=== PATIENT | female | born 1940 | race Caucasian/White ===

== ENCOUNTER 2016-11-01 12:18 | Emergency (ER) | payer OTHER, MEDICARE ==
[~2016-11-01] VITALS: Ht 152.4 cm; Wt 80.3 kg
[~2016-11-01 12:18] MED LIST: ALBUTEROL0.63 MG/1 INH/SOL; ALLOPURINOL300 M1 PO; ALLOPURINOL300 MG PO; ASPIR 8181 MG PO; ASPIRIN EC81 M1 PO; AZITHROMYCIN250 M1 PO; BENICAR HCT 12.1 TAB PO; BENICAR HCT 201 EACH PO; BENICAR20 M1 PO; BENZONATATE200 M1 PO; CLONAZEPAM1 M2 PO; CLONAZEPAM1 MG PO; ECOTRIN81 MG PO; FENOFIBRATE145 MG PO; FLUOXETINE20 MG PO; LEVSIN/SL0.125 MG SL; LOVENOX 4040 MG/0.4 SC; MIRALAX17 GM PO; OMEPRAZOLE40 M1 PO; OMEPRAZOLE40 MG PO; PERCOCET 325 MG1 TA2 PO; PRAVASTATIN SOD40 M2 PO; PRAVASTATIN SOD40 MG PO; PREDNISONE10 M2 PO; PREDNISONE20 M1 PO; PROVENTIL HFA6.7 GM INH; PROZAC20 M2 PO; Senokot S PO; TAMIFLU75 M1 PO; TRICOR145 M1 PO; TYLENOL EXTRA500 M2 PO; ZITHROMAX250 M2 PO; ZOFRAN4 M1 SL
[2016-11-01 12:23] VITALS: BP 133/85
--- NOTE | 2016-11-01 12:54 | ED GENERAL ADULT ---
History of Present Illness General Chief Complaint: General Adult Stated Complaint: RT TMJ PAIN AND GRINGING PAIN Source: patient Exam Limitations: no limitations Vital Signs & Intake/Output Vital Signs & Intake/Output Vital Signs Date Time Temp Pulse Resp B/P Pulse O2 O2 Flow FiO2 Ox Delivery Rate 11/01 1235 99 Room Air 11/01 1223 96.4 106 18 133/85 94 Room Air Allergies Coded Allergies: shellfish derived (Severe, AFFECTS PANCREAS PER PT 10/21/15) Penicillins (RASH, HIVES 11/26/15) Reconcile Medications Acetaminophen (Tylenol Extra Strength) 500 MG TABLET 2 TAB PO PRN PAIN ( Reported) Albuterol Sulfate 0.63 MG/3 ML VIAL.NEB 1 Vial INH/DONNY TID BRONCHITIS Albuterol Sulfate (Proventil Hfa) 90 MCG HFA.AER.AD 2 PUF INH Q4 sob Allopurinol 300 MG TABLET 1 TAB PO DAILY GOUT (Reported) Aspirin (Ecotrin*) 81 MG TABLET.DR 1 TAB PO DAILY HEART HEALTH (Reported) Clonazepam 1 MG TABLET 1 TAB PO QPM PRN SLEEP (Reported) Fenofibrate Nanocrystallized (Tricor) 145 MG TABLET 1 TAB PO DAILY TRIGLYCERIDES (Reported) Fluoxetine HCl (Prozac) 20 MG CAPSULE 3 CAP PO QAM MENTAL HEALTH (Reported) Olmesartan Medoxomil (Benicar) 20 MG TABLET 1 TAB PO DAILY BP (Reported) Omeprazole 40 MG CAPSULE.DR 1 CAP PO DAILY GI (Reported) Oxycodone HCl/Acetaminophen (Percocet 5-325 MG Tablet) 5 MG-325 MG TABLET 1 TAB PO BID PRN PAIN Pravastatin Sodium 40 MG TABLET 1 TAB PO QPM CHOLESTEROL (Reported) Triage Note: PT STATES THAT WHEN EATING ON FRIDAY HER TMJ LOCKED AND SHE HEARD A CLICK,. SHE HAS NO BEEN ABLE TO TALK OR EAT SINCE DUE TO 05/27 PAIN ON RIGHT SIDE OF JAW Triage Nurses Notes Reviewed? yes Onset: Abrupt Duration: getting worse Timing: remote history Severity: severe Severity Numbers: 10 HPI: Patient is a 76-year-old female who presents emergency room stating that she has chronic TMJ syndrome and the last 2 weeks after eating and jaw movements her symptoms are much worse in which she states that yesterday she was eating food and chewing and noticed that her jaw was locked and patient forcibly unlocked it and since patient is having worsening pain with jaw movement is most localized to the right TMJ region. Patient has been taking Tylenol with minimal relief of symptoms. (AYAN SHAH) Past History Travel History Traveled to [place] past 21 day No Medical History Any Pertinent Medical History? 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 MOTHER FH: diabetes mellitus SISTER Thyroid disease Hx Contributory? No (AYAN SHAH) Review of Systems Review of Systems Constitutional: Reports: no symptoms. EENTM: Reports: see HPI, mouth pain. Respiratory: Reports: no symptoms. Cardiovascular: Reports: no symptoms. GI: Reports: no symptoms. Genitourinary: Reports: no symptoms. Musculoskeletal: Reports: no symptoms. Skin: Reports: no symptoms. Neurological/Psychological: Reports: no symptoms. Hematologic/Endocrine: Reports: no symptoms. Immunologic/Allergic: Reports: no symptoms. All Other Systems: Reviewed and Negative (AYAN SHAH) Physical Exam Physical Exam General Appearance: no apparent distress, alert, comfortable Comments: Well-developed well-nourished person in no acute distress HEENT: Normal EENT exam, extraocular motion intact, no nystagmus. Pupils equally round and reactive to light and accommodation. Nose is atraumatic. External auditory canal and Tympanic membranes clear. Pharynx normal. No swelling or edema. Neck: Supple, no lymphadenopathy, normal range of motion without pain or tenderness Back: Nontender, no CVA tenderness. Cardiovascular: Regular rate and rhythms no murmurs rubs or gallops, normal JVP Extremity: No edema, no calf tenderness to palpation, normal and equal pulses. Neuro: Alert oriented x3, motor sensory normal, Skin: No appreciable rash on exposed skin, skin is warm and dry. Psych: Mood and affect is normal, memory and judgment is normal. Face-normal inspection mild trismus noted Posterior pharynx visible Right-sided TMJ point tenderness noted Core Measures ACS in differential dx? No CVA/TIA Diagnosis: No Severe Sepsis Present: No Septic Shock Present: No (AYAN SHAH) Progress Differential Diagnoses I considered the following diagnoses in my evaluation of the patient: [TMJ, OM, MASTOIDITIS, OE, FX, SUBLUXATION/DISLOCATION OF TMJ] Plan of Care: Orders Procedure Date/time Status XRY-BILATERAL TMJS 11/01 1304 Active Patient currently is resting comfortably in no apparent distress No osseous injuries noted on x-rays. Patient was made aware of x-ray findings. Upon discharge patient looks well no apparent distressS importance of soft diet to avoid provocative worsening symptoms patient was given OMF follow up (AYAN SHAH) Diagnostic Imaging: Viewed by Me: Radiology Read. Radiology Impression: no acute abnormality, no fracture Initial ED EKG: none Comments: PATIENT: MARK KAUR PRESENT AGE: 76 PATIENT ACCOUNT NO: [id number] : 42 LOCATION: [facility] ORDERING PHYSICIAN: AYAN WOODS SERVICE DATE: 11/01/16 EXAM TYPE: RAD - XRY-BILATERAL TMJS EXAMINATION: XR TEMPOROMANDIBULAR JOINT, BILATERAL CLINICAL INFORMATION: Right temporomandibular joint subluxation and pain. Evaluate for fracture. COMPARISON: No relevant prior imaging is available. TECHNIQUE: 2 views of the left temporomandibular joint and 2 views of the right temporomandibular joint were obtained. FINDINGS: The mandibular condyles and rami are intact. There appears be normal anterior translation of the condyles onto the articular eminence on open-mouth projections on the right and the left. IMPRESSION: Unremarkable examination. No evidence of acute fracture. 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 Begin icing the area for pain and inflammation and begin the prescription of Percocet for breakthrough pain relief. Please begin a soft diet and did not eat hard foods that this may worsen your symptoms. If symptoms worsen return to emergency room for prescription and that when in [place] pharmacy Departure Forms: Customer Survey General Discharge Information Prescriptions: Current Visit Scripts Oxycodone HCl/Acetaminophen (Percocet 5-325 MG Tablet) 1 TAB PO BID PRN PAIN #10 TAB (AYAN SHAH) PA/TEST DEVELOPMENT ENGINEER Co-Sign Statement Statement: ED Attending supervision documentation- [X] I saw and evaluated the patient. I have also reviewed all the pertinent lab results and diagnostic results. I agree with the findings and the plan of care as documented in the PA's/TEST DEVELOPMENT ENGINEER's documentation. [] I have reviewed the ED Record and agree with the PA's/TEST DEVELOPMENT ENGINEER's documentation. [] Additions or exceptions (if any) to the PAs/TEST DEVELOPMENT ENGINEER's note and plan are summarized below: [] (FARA LARSEN,ABDULAZIZ Quintanilla) Critical Care Note Critical Care Note Critical Care Time: non-applicable (AYAN SHAH)
--- NOTE | 2016-11-01 14:17 | RADIOLOGY REPORT ---
EXAMINATION: XR TEMPOROMANDIBULAR JOINT, BILATERAL CLINICAL INFORMATION: Right temporomandibular joint subluxation and pain. Evaluate for fracture. COMPARISON: No relevant prior imaging is available. TECHNIQUE: 2 views of the left temporomandibular joint and 2 views of the right temporomandibular joint were obtained. FINDINGS: The mandibular condyles and rami are intact. There appears be normal anterior translation of the condyles onto the articular eminence on open-mouth projections on the right and the left. IMPRESSION: Unremarkable examination. No evidence of acute fracture.
[2016-11-01] MEDS ORDERED: PERCOCET 5-3251 EACH PO (14:21)
== END 2016-11-01 15:05 ==
LOC: ERH 12:18
DX: M26.621 Arthralgia of right temporomandibular joint (principal)
CPT/HCPCS: 70330

== ENCOUNTER 2016-12-29 14:59 | Emergency (ER) | payer OTHER, MEDICARE ==
[~2016-12-29] VITALS: Ht 147.3 cm; Wt 80.3 kg
[~2016-12-29 14:59] MED LIST changes: +PERCOCET 5-3251 EACH PO
--- NOTE | 2016-12-29 15:18 | ED GENERAL ADULT ---
History of Present Illness General Chief Complaint: Lower Extremity Problems Stated Complaint: L LEG PAIN AND SWELLING Source: patient, family, old records Exam Limitations: no limitations Allergies Coded Allergies: shellfish derived (Severe, AFFECTS PANCREAS PER PT 10/21/15) Penicillins (RASH, HIVES 11/26/15) Reconcile Medications Acetaminophen (Tylenol Extra Strength) 500 MG TABLET 2 TAB PO PRN PAIN ( Reported) Albuterol Sulfate 0.63 MG/3 ML VIAL.NEB 1 Vial INH/DONNY TID BRONCHITIS Albuterol Sulfate (Proventil Hfa) 90 MCG HFA.AER.AD 2 PUF INH Q4 sob Allopurinol 300 MG TABLET 1 TAB PO DAILY GOUT (Reported) Aspirin (Ecotrin*) 81 MG TABLET.DR 1 TAB PO DAILY HEART HEALTH (Reported) Clonazepam 1 MG TABLET 1 TAB PO QPM PRN SLEEP (Reported) Fenofibrate Nanocrystallized (Tricor) 145 MG TABLET 1 TAB PO DAILY TRIGLYCERIDES (Reported) Fluoxetine HCl (Prozac) 20 MG CAPSULE 3 CAP PO QAM MENTAL HEALTH (Reported) Olmesartan Medoxomil (Benicar) 20 MG TABLET 1 TAB PO DAILY BP (Reported) Omeprazole 40 MG CAPSULE.DR 1 CAP PO DAILY GI (Reported) Oxycodone HCl/Acetaminophen (Percocet 5-325 MG Tablet) 5 MG-325 MG TABLET 1 TAB PO BID PRN PAIN Pravastatin Sodium 40 MG TABLET 1 TAB PO QPM CHOLESTEROL (Reported) Tylenol With Codeine (Tylenol With Codeine #3 Tablet) 300 MG-30 MG TABLET 1 TAB PO Q6P PRN Knee Pain Triage Note: PT STATES HER LEFT LEG IS SWOLLEN AND PAINFULL THAT STARTED FRIDAY Triage Nurses Notes Reviewed? yes HPI: Ms. Carroll is a 76-year-old woman past medical history of hypertension , hyperlipidemia, anxiety, depression, gout, GERD, chronic kidney disease stage III, status post right total hip arthroplasty for osteoarthritis who presented to the emergency department on 12/29/2016 complaining of worsening lower left leg extremity pain. Patient endorses that her pain began on Friday12/25/2016. At its peak, this pain is rated a 10 out of 10 in severity. Described as sharp pain. Pain however is fluctuating in nature between a 7 out of 10 in severity to a 10 out of 10 in severity. At the time of our clinical encounter the patient does report that left lower extremity pain is 7 out of 10. She recently took 2 Tylenols prior to coming in. The patient denies any recent long travel. She denies any family history of blood clots. She does however endorse prolonged immobility and often spends long hours watching television. The patient does also report that on Friday12/24/2016 she did feel like she had to get in and out of an extremely low car multiple times which may have been contributing to her current complaint. She denies any fever, chills, vomiting although does endorse nausea. She also reports subjective shortness of breath. (FRANK TREADWELL MD) Vital Signs & Intake/Output Vital Signs & Intake/Output Vital Signs Date Time Temp Pulse Resp B/P B/P Pulse O2 O2 Flow FiO2 Mean Ox Delivery Rate 12/29 1732 87 112/80 ED Intake and Output 12/30 0000 12/29 1200 Intake Total Output Total Balance Patient 80.286 kg Weight Weight Reported by Patient Measurement Method Past History Travel History Traveled to [place] past 21 day No Medical History Any Pertinent Medical History? 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 MOTHER FH: diabetes mellitus SISTER Thyroid disease (FRANK TREADWELL MD) Family History Hx Contributory? No (IRA LARSEN,MAIRA Anderson) Review of Systems Review of Systems Constitutional: Denies: chills, diaphoresis, fever, malaise, weakness. Cardiovascular: Denies: chest pain, edema, orthopena, palpitations, peripheral edema. GI: Reports: nausea. Denies: abdominal pain, constipation, diarrhea, distention, bowel incontinence, melena, bloody stool, changes in stool. Genitourinary: Denies: discharge, dysuria, frequency, hematuria, hesitation. Musculoskeletal: Reports: see HPI, muscle pain. Denies: back pain, gout, joint pain, joint swelling. Skin: Denies: cysts, change in skin color, change in hair/nails, dryness, erythema. (FRANK TREADWELL MD) Review of Systems EENTM: Reports: no symptoms. Respiratory: Reports: no symptoms. Neurological/Psychological: Reports: no symptoms. Immunologic/Allergic: Reports: no symptoms. (IRA LARSEN,MAIRA Anderson) Physical Exam Physical Exam General Appearance: well developed/nourished, no apparent distress, alert, awake Respiratory: normal breath sounds, chest non-tender, no respiratory distress Cardiovascular: regular rate/rhythm Peripheral Pulses: 4+ tibialis posterior (R), 4+ tibialis posterior (L), 4+ dorsalis pedis (R), 4+ dorsalis pedis (L) Gastrointestinal: normal bowel sounds, soft, non-tender, no organomegaly Back: normal inspection Extremities: swelling (Left Lower Extremity ), Left lowere leg Tenderness on Palpation at the level of the mid calf. Left leg > Right Leg. Neurologic/Psych: awake, alert, oriented x 3, normal gait (FRANK TREADWELL MD) Physical Exam Eyes: Bilateral: PERRL, EOMI. Neck: normal inspection, supple, full range of motion, NO JVD Skin: intact, normal color, warm/dry Lymphatic: no anterior cervical luigi Core Measures ACS in differential dx? No CVA/TIA Diagnosis: No Severe Sepsis Present: No Septic Shock Present: No (MAIRA ROTH MD) Progress Differential Diagnoses I considered the following diagnoses in my evaluation of the patient: Muscular strain ,DVT, cellulitis, (FRANK TREADWELL MD) Differential Diagnoses I considered the following diagnoses in my evaluation of the patient: Plan of Care: Orders Procedure Date/time Status COMPREHENSIVE METABOLIC PANEL 12/29 1546 Complete CBC WITHOUT DIFFERENTIAL 12/29 1546 Complete Laboratory Tests 12/29/16 1623: Anion Gap 12, Estimated GFR 44 L, BUN/Creatinine Ratio 24.2, Glucose 110 H, Calcium 9.8, Total Bilirubin 0.6, AST 54 H, ALT 33, Alkaline Phosphatase 53, Total Protein 6.7, Albumin 3.9, Globulin 2.8, Albumin/Globulin Ratio 1.4, CBC w Diff NO MAN DIFF REQ, RBC 3.59 L, MCV 93.6, MCH 30.9, RDW 16.1 H, MPV 8.9, Gran % 66.9, Lymphocytes % 22.5, Monocytes % 5.7, Eosinophils % 4.5, Basophils % 0.4, Absolute Granulocytes 5.4, Absolute Lymphocytes 1.8, Absolute Monocytes 0.5 , Absolute Eosinophils 0.4, Absolute Basophils 0, PUBS MCHC 33.0 Diagnostic Imaging: Viewed by Me: Ultrasound. Discussed w/RAD: Ultrasound. Radiology Impression: PATIENT: MARK CARROLL PRESENT AGE: 76 PATIENT ACCOUNT NO: [id number] : 42 LOCATION: [facility] ORDERING PHYSICIAN: FRANK TREADWELL MD SERVICE DATE: 12/29/16- EXAM TYPE: US - US- UNILATERAL VENOUS DOPPLER EXAMINATION: US TRIPLEX LOWER EXTREMITY, LEFT CLINICAL INFORMATION: Left lower extremity pain. COMPARISON: None TECHNIQUE: Color-flow triplex imaging with spectral analysis and compression Doppler were performed on the lower extremity. FINDINGS: Respiratory variation, normal compression and augmented flow are noted throughout the left lower extremity. The visualized common femoral vein, superficial femoral vein, profunda femoral vein, popliteal vein and visualized calf venous segments show no evidence of deep venous thrombosis. There is no Campos's cyst. IMPRESSION: No evidence of deep venous thrombosis involving the lower extremity. DICTATED BY: AMALIA HOANG MD DATE/ TIME DICTATED:12/29/161618 JAVA GRAILS DEVELOPER:XAVIER DATE/TIME TRANSCRIBED: 12/29/161618 CONFIDENTIAL, DO NOT COPY WITHOUT APPROPRIATE AUTHORIZATION. < Electronically signed in Other Vendor System> SIGNED BY: AMALIA HOANG MD 12/29/16 3398 Initial ED EKG: none (IRA LARSEN,MAIRA Anderson) Departure Departure Disposition: HOME OR SELF CARE Condition: Stable Clinical Impression Primary Impression: Knee sprain Referrals: BRENT WOODS,YANY ANTOINE (PCP/Family) MARIBEL LARSEN,BAL Additional Instructions: Please follow-up with your primary care physician within one week. Please inform your primary care physician of this visit to the emergency department and the treatment administered to you. Please continue to Ice your left knee for symptmatic relief. We also request you to increase ambulation and frequent repositioning to reduce your risk of clot formation. Prolonged immobility is often associated with an increased risk of developing clots. Please follow-up with the orthopedic service in the next 7 days. We have provided you with a referral Bal Reed MD. Should you experience worsening leg pain, shortness of breath, chest pain, fever , chills, nausea, vomiting please come back to the emergency department for an additional workup. Departure Forms: Customer Survey General Discharge Information Prescriptions: Current Visit Scripts Tylenol With Codeine (Tylenol With Codeine #3 Tablet) 1 TAB PO Q6P PRN Knee Pain #20 TAB (MILE LARSEN,[facility]) Resident Co-Sign Statement Statement: ED Attending supervision documentation- [X] I saw and evaluated the patient. I have also reviewed all the pertinent lab results and diagnostic results. I agree with the findings and the plan of care as documented in the Resident's documentation. [X] I have reviewed the ED Record and agree with the Resident's documentation. [] Additions or exceptions (if any) to the Resident's note and plan are summarized below: [I have personally seen and examined this patient. I have read the above note and agree with what has been written. Patient has left medial anterior knee pain that radiates down or calf. The pain increases with movement. There is pedal edema. Homans sign is negative. There are no fevers or chills. There is no known injury. Ultrasound is negative. Patient clinically has a knee sprain. Patient will follow-up with orthopedics.] (IRA LARSEN,MAIRA Anderson) Critical Care Note Critical Care Note Critical Care Time: non-applicable (IRA LARSEN,MAIRA Anderson)
--- NOTE | 2016-12-29 16:25 | ULTRASOUND REPORT ---
EXAMINATION: US TRIPLEX LOWER EXTREMITY, LEFT CLINICAL INFORMATION: Left lower extremity pain. COMPARISON: None TECHNIQUE: Color-flow triplex imaging with spectral analysis and compression Doppler were performed on the lower extremity. FINDINGS: Respiratory variation, normal compression and augmented flow are noted throughout the left lower extremity. The visualized common femoral vein, superficial femoral vein, profunda femoral vein, popliteal vein and visualized calf venous segments show no evidence of deep venous thrombosis. There is no Campos's cyst. IMPRESSION: No evidence of deep venous thrombosis involving the lower extremity.
[2016-12-29 16:45] LABS: ABSOLUTE BASOPHIL COUNT 0 /CUMM (0.0-0.2); ABSOLUTE EOSINOPHIL COUNT 0.4 /CUMM (0.0-0.7); ABSOLUTE GRANULOCYTE CT 5.4 /CUMM (1.4-6.5); ABSOLUTE LYMPH COUNT 1.8 /CUMM (1.2-3.4); ABSOLUTE MONOCYTE COUNT 0.5 /CUMM (0.10-0.60); BASOPHIL % 0.4 % (0.0-2.0); EOSINOPHIL % 4.5 % (0-5); HEMATOCRIT 33.6 % (37-47); MEAN CORPUSCULAR HGB 30.9 PG (27.0-31.0); MEAN CORPUSCULAR VOLUME 93.6 FL (81.0-99.0); MEAN PLATELET VOLUME 8.9 FL (7.4-10.4); PLATELET COUNT 257 /CUMM (130-400); RBC DISTRIBUTION WIDTH 16.1 % (11.5-14.5); RED BLOOD CELL CT 3.59 /CUMM (4.20-5.40); WHITE BLOOD CELL COUNT 8.1 /CUMM (4.8-10.8)
[2016-12-29 16:58] LABS: GRANULOCYTE % 66.9 % (42.2-75.2)
[2016-12-29] MEDS ORDERED: TYLENOL WITH C1 EACH PO (17:04)
[2016-12-29 17:32] VITALS: BP 112/80
== END 2016-12-29 17:33 ==
LOC: ERH 14:59
PROVIDERS: Student in an Organized Health Care Education/Training Program
DX: S83.92XA Sprain of unspecified site of left knee, initial encounter (principal); X58.XXXA Exposure to other specified factors, initial encounter; Y92.9 Unspecified place or not applicable; Y93.9 Activity, unspecified

== ENCOUNTER 2017-11-19 13:30 | Emergency (ER) | payer OTHER, MEDICARE ==
[~2017-11-19] VITALS: Ht 152.4 cm; Wt 80.3 kg
[~2017-11-19 13:30] MED LIST changes: +TYLENOL WITH C1 EACH PO
--- NOTE | 2017-11-19 14:05 | ED GI/GU/ABDOMINAL COMPLAINT ---
History of Present Illness General Chief Complaint: General Adult Stated Complaint: VAGINAL BLEEDING Source: patient Exam Limitations: no limitations Vital Signs & Intake/Output Vital Signs & Intake/Output Vital Signs Date Time Temp Pulse Resp B/P B/P Pulse O2 O2 Flow FiO2 Mean Ox Delivery Rate 11/19 1633 98.4 88 20 134/88 94 Room Air 11/19 1632 Room Air 11/19 1346 96.9 93 18 125/81 96 Room Air Allergies Coded Allergies: shellfish derived (Severe, AFFECTS PANCREAS PER PT 10/21/15) Penicillins (RASH, HIVES 11/26/15) Reconcile Medications Acetaminophen (Tylenol Extra Strength) 500 MG TABLET 2 TAB PO PRN PAIN ( Reported) Albuterol Sulfate 0.63 MG/3 ML VIAL.NEB 1 Vial INH/DONNY TID BRONCHITIS Albuterol Sulfate (Proventil Hfa) 90 MCG HFA.AER.AD 2 PUF INH Q4 sob Allopurinol 300 MG TABLET 1 TAB PO DAILY GOUT (Reported) Aspirin (Ecotrin*) 81 MG TABLET.DR 1 TAB PO DAILY HEART HEALTH (Reported) Ciprofloxacin HCl (Cipro) 500 MG TABLET 1 TAB PO BID UTI Clonazepam 1 MG TABLET 1 TAB PO QPM PRN SLEEP (Reported) Fenofibrate Nanocrystallized (Tricor) 145 MG TABLET 1 TAB PO DAILY TRIGLYCERIDES (Reported) Fluconazole (Diflucan) 150 MG TABLET 1 TAB PO ONCE ABX USE Fluoxetine HCl (Prozac) 20 MG CAPSULE 3 CAP PO QAM MENTAL HEALTH (Reported) Olmesartan Medoxomil (Benicar) 20 MG TABLET 1 TAB PO DAILY BP (Reported) Omeprazole 40 MG CAPSULE.DR 1 CAP PO DAILY GI (Reported) Pravastatin Sodium 40 MG TABLET 1 TAB PO QPM CHOLESTEROL (Reported) Triage Note: C/O VAGINAL BLEEDING X 1 TODAY, WITH SLIGHT PAIN IN BACK. REPORTS SHE HAS A KIDNEY IN HER PELVIS. DENIES URINARY SXS, ABDOMINAL PAIN OR NAUSEA. Triage Nurses Notes Reviewed? yes ? N Is pt currently ? No Duration: constant Timing: single episode today Severity Numbers: 3 Location: right upper quadrant Radiation: no radiation HPI: PT IS A 75 Y/O FEMALE WITH A PMHx HTN, HLD, anxiety, depression, gout, GERD, CKD stage3, surgical hx of right total hip arthroplasty for osteoarthritis, and right "pelvic kidney" where she had approximately 10-15 years ago a hysterectomy due to persistent vaginal bleeding and which she has not had any bleeding since patient states that yesterday she had a gradual onset of "menstrual cramping "abdominal sensation where today after having a bowel movement and after urination she noted tissue only on the paper when wiping her. Vaginal region, there was no blood in the toilet bowl nor on the tissue when she was wiping her perirectal region, Patient states she checked on her vaginal region approximately 15 minutes later and still noted blood after applying tissues to the region Prior to examination patient did give a urine sample in the emergency room and states there was no blood after wiping nor in her urine. Patient states that the bowel movement was noted to be dark brown no melena no bright red blood. Patient denies any fever chills (Justin Costello) Past History Travel History Traveled to [place] past 21 day No Medical History Any Pertinent Medical History? see below for history Neurological: NONE EENT: NONE Cardiovascular: hypertension, hyperlipidemia Respiratory: None Gastrointestinal: GERD Hepatic: NONE Renal: CKD STAGE 3 KIDNEY STONES Musculoskeletal: gout, R THR Psychiatric: anxiety, depression Endocrine: NONE Blood Disorders: NONE Cancer(s): NONE FOX RAISER/Reproductive: NONE History of MRSA: No History of VRE: No History of CDIFF: No Surgical History Surgical History: hip replacement Psychosocial History Who do you live with Spouse Services at Home None What is your primary language Norwegian Tobacco Use: Never used ETOH Use: denies use Family History Family History, If Any: FATHER, ; Cause: Colon cancer. MOTHER FH: diabetes mellitus SISTER Thyroid disease Hx Contributory? No (Justin Costello) Review of Systems Review of Systems Constitutional: Reports: no symptoms. EENTM: Reports: no symptoms. Respiratory: Reports: no symptoms. Cardiovascular: Reports: no symptoms. GI: Reports: see HPI, abdominal pain. Genitourinary: Reports: see HPI. Musculoskeletal: Reports: no symptoms. Skin: Reports: no symptoms. Neurological/Psychological: Reports: no symptoms. Hematologic/Endocrine: Reports: no symptoms. Immunologic/Allergic: Reports: no symptoms. All Other Systems: Reviewed and Negative (Justin Costello) Physical Exam Physical Exam General Appearance: no apparent distress, obese Head: atraumatic Eyes: Bilateral: normal appearance. Ears, Nose, Throat, Mouth: moist mucous membrane Neck: normal inspection Respiratory: no respiratory distress Cardiovascular: regular rate/rhythm Gastrointestinal: normal bowel sounds, soft, MILD SUPRAPUBIC TENDERNESS Rectal: normal inspection, normal rectal tone, heme negative stool Pelvic: normal external exam, normal speculum exam, normal bimanual exam, no cerv. motion tender, no masses Back: normal inspection Neurologic/Psych: no motor/sensory deficits, awake Skin: intact, normal color, warm/dry Core Measures ACS in differential dx? No Sepsis Present: No Sepsis Focused Exam Completed? No (Selene WOODS,Justin) Progress Differential Diagnosis: AAA, AMI, appendicitis, biliary colic, bowel obstruction , colon cancer, cholecystitis, diverticulitis, endometritis, esophageal varices, gastritis, hepatitis, hernia, hemorrhoids, ischemic bowel, inflamm bowel dis, kidney stone, Nicole-Kanwal tear, ovarian cyst, ovarian torsion, pancreatitis, PID/cervicitis, peptic ulcer, PUD/GERD, perforated viscous, SBO, UTI/pyelo Plan of Care: Orders Procedure Date/time Status Add-on Test (ER Only) 11/19 1651 Active PARTIAL THROMBOPLASTIN TIME 11/19 1457 Complete PROTHROMBIN TIME 11/19 1457 Complete COMPREHENSIVE METABOLIC PANEL 11/19 1457 Complete CBC WITHOUT DIFFERENTIAL 11/19 1457 Complete CULTURE,URINE 11/19 1447 Active URINALYSIS 11/19 1349 Complete Laboratory Tests 11/19/17 1532: Anion Gap 14, Estimated GFR 40 L, BUN/Creatinine Ratio 25.4 H, Glucose 92, Calcium 9.8, Total Bilirubin 0.7, AST 68 H, ALT 22, Alkaline Phosphatase 68, Total Protein 7.3, Albumin 3.9, Globulin 3.4, Albumin/Globulin Ratio 1.1, PT 13.2 H, INR 1.21 H, APTT 50 H, CBC w Diff NO MAN DIFF REQ, RBC 3.20 L, MCV 93.1, MCH 30.8, MCHC 33.1, RDW 16.8 H, MPV 8.1, Gran % 61.5, Lymphocytes % 25.8 , Monocytes % 7.9, Eosinophils % 4.3, Basophils % 0.5, Absolute Granulocytes 5.2 , Absolute Lymphocytes 2.2, Absolute Monocytes 0.7 H, Absolute Eosinophils 0.4, Absolute Basophils 0 11/19/17 1447: Urine Color BENNETT, Urine Clarity CLEAR, Urine pH 6.0, Ur Specific [place] 1.025, Urine Protein NEG, Urine Ketones NEG, Urine Nitrite NEG, Urine Bilirubin NEG, Urine Urobilinogen 1.0, Ur Leukocyte Esterase TRACE H, Ur Microscopic SEDIMENT EXAMINED, Urine RBC 1-3, Urine WBC 1-3 H, Ur Epithelial Cells RARE, Urine Bacteria MOD H, Urine Hemoglobin NEG, Urine Glucose NEG Microbiology 11/19 1447 URINE ROUT: Urine Culture - RECD Patient on initial presentation was resting comfortably bedside normotensive afebrile no apparent distress patient has minimal suprapubic abdominal pain on palpation and physical exam, physical exam also reveals no vaginal bleeding normal external labia and normal rectal tone and heme-negative stool CT scan was dictated showing no acute process, discussed CT scan results of the 2 cm left kidney hypodensity to follow-up she was given copies of imaging, Patient's hemoglobin and hematocrit per old records was lower than her baseline in which she was given a lab formed to have repeat H&H in 2 days This will be sent to her primary care doctor Patient was offered pain medications in the emergency room and declined Patient also notes to me to the left trunk region of then irregular black MOLE I strongly advised patient to follow up with her primary care doctor and a bed worker Note that on exam the MOLE was approximately 7 mm black and irregular Discussed disposition and plan with DR. BRANNON who agrees Initial ED EKG: none Comments: PATIENT: MARK KAUR PRESENT AGE: 77 PATIENT ACCOUNT NO: [id number] : 42 LOCATION: [facility] ORDERING PHYSICIAN: Justin WOODS SERVICE DATE: 11/19/17 EXAM TYPE: CAT - CT ABD & PELVIS W/O IV CONTRAS EXAMINATION: CT ABDOMEN AND PELVIS WITHOUT CONTRAST CLINICAL INFORMATION: Vaginal bleeding, prior hysterectomy COMPARISON: 03/28/2014 TECHNIQUE: Multidetector volumetric imaging was performed from the superior aspect of the liver through the pubic symphysis. Sagittal and coronal reformatted images were obtained on the technologist's workstation. DLP: 765.69 mGy-cm FINDINGS: LUNG BASES: The visualized lung bases are unremarkable. LIVER, GALLBLADDER, AND BILIARY TREE: The liver is enlarged, measuring approximately 24 cm in craniocaudal dimension. No focal hepatic lesion or biliary ductal dilatation is present. The gallbladder is unremarkable with no evidence of radiopaque gallstones, gallbladder wall thickening, or obvious pericholecystic inflammatory changes. PANCREAS: Unremarkable. SPLEEN: Unremarkable. ADRENAL GLANDS: Unremarkable. KIDNEYS AND URETERS: Right pelvic kidney is noted, without hydronephrosis. There is fullness of the left extrarenal pelvis which appears similar to prior. There is a 2.0 cm hyperdense lesion in the posterior upper left kidney which may been present as a smaller lesion previously. No calculi identified bilaterally. BLADDER: Mildly distended and not well assessed due to streak artifact from right hip arthroplasty hardware. GASTROINTESTINAL TRACT: The small and large bowel are unremarkable. ABDOMINAL WALL: No significant hernia is appreciated. LYMPH NODES: Normal. VASCULAR: There is atherosclerotic calcification along the aorta. PELVIC VISCERA: Patient is status post hysterectomy. OSSEOUS STRUCTURES: Degenerative changes are noted in the spine. Patient is status post right total hip arthroplasty. IMPRESSION: 1. No acute findings identified in the abdomen/pelvis. 2. Suggestion of a 2.0 cm hypodense lesion in the upper left kidney which could reflect a hyperdense cyst. Further assessment with renal ultrasound is advised to exclude a solid mass. 3. Right pelvic kidney. 4. Hepatomegaly. DICTATED BY: Giovanny Hinton MD DATE/TIME DICTATED:11/19/17 (Justin Costello) Departure Departure Disposition: HOME OR SELF CARE Condition: Stable Clinical Impression Primary Impression: Vaginal bleeding Secondary Impressions: Abdominal pain, Anemia, Atypical nevi, Kidney cysts, UTI (urinary tract infection) Referrals: Cathy WOODS,Radha Espino (PCP/Family) Michelle LARSEN,Nick Duncan Additional Instructions: As discussed tomorrow please follow-up with your FOX RAISER Nick Martinez MD for further evaluation treatment, if symptoms worsen or if he develop new concerning symptom return to emergency room, please present the prescription of repeat blood work of your hemoglobin and hematocrit to a lab in 2 days and this will be sent to your primary care doctor. Departure Forms: Customer Survey General Discharge Information Prescriptions: Current Visit Scripts Ciprofloxacin HCl (Cipro) 1 TAB PO BID #14 TAB Fluconazole (Diflucan) 1 TAB PO ONCE #1 TAB (Justin Costello) PA/CONSULTATIVE SALES ASSOCIATE Co-Sign Statement Statement: ED Attending supervision documentation- [X] I saw and evaluated the patient. I have also reviewed all the pertinent lab results and diagnostic results. I agree with the findings and the plan of care as documented in the PA's/CONSULTATIVE SALES ASSOCIATE's documentation. [] I have reviewed the ED Record and agree with the PA's/CONSULTATIVE SALES ASSOCIATE's documentation. [] Additions or exceptions (if any) to the PAs/CONSULTATIVE SALES ASSOCIATE's note and plan are summarized below: [] (Marshall Brannon DO
[2017-11-19 15:50] LABS: ABSOLUTE BASOPHIL COUNT 0 /CUMM (0.0-0.2); ABSOLUTE EOSINOPHIL COUNT 0.4 /CUMM (0.0-0.7); ABSOLUTE GRANULOCYTE CT 5.2 /CUMM (1.4-6.5); ABSOLUTE LYMPH COUNT 2.2 /CUMM (1.2-3.4); ABSOLUTE MONOCYTE COUNT 0.7 /CUMM (0.10-0.60); BASOPHIL % 0.5 % (0.0-2.0); EOSINOPHIL % 4.3 % (0-5); GRANULOCYTE % 61.5 % (42.2-75.2); HEMATOCRIT 29.8 % (37-47); MEAN CORPUSCULAR HGB 30.8 PG (27.0-31.0); MEAN CORPUSCULAR HGB CONC 33.1 G/DL (33.0-37.0); MEAN CORPUSCULAR VOLUME 93.1 FL (81.0-99.0); MEAN PLATELET VOLUME 8.1 FL (7.4-10.4); PLATELET COUNT 269 /CUMM (130-400); RBC DISTRIBUTION WIDTH 16.8 % (11.5-14.5); WHITE BLOOD CELL COUNT 8.5 /CUMM (4.8-10.8)
[2017-11-19 16:03] LABS: PT 13.2 SEC (9.4-12.5); PTT 50 SEC (25-37)
--- NOTE | 2017-11-19 16:06 | CT SCAN REPORT ---
EXAMINATION: CT ABDOMEN AND PELVIS WITHOUT CONTRAST CLINICAL INFORMATION: Vaginal bleeding, prior hysterectomy COMPARISON: 03/28/2014 TECHNIQUE: Multidetector volumetric imaging was performed from the superior aspect of the liver through the pubic symphysis. Sagittal and coronal reformatted images were obtained on the technologist's workstation. DLP: 765.69 mGy-cm FINDINGS: LUNG BASES: The visualized lung bases are unremarkable. LIVER, GALLBLADDER, AND BILIARY TREE: The liver is enlarged, measuring approximately 24 cm in craniocaudal dimension. No focal hepatic lesion or biliary ductal dilatation is present. The gallbladder is unremarkable with no evidence of radiopaque gallstones, gallbladder wall thickening, or obvious pericholecystic inflammatory changes. PANCREAS: Unremarkable. SPLEEN: Unremarkable. ADRENAL GLANDS: Unremarkable. KIDNEYS AND URETERS: Right pelvic kidney is noted, without hydronephrosis. There is fullness of the left extrarenal pelvis which appears similar to prior. There is a 2.0 cm hyperdense lesion in the posterior upper left kidney which may been present as a smaller lesion previously. No calculi identified bilaterally. BLADDER: Mildly distended and not well assessed due to streak artifact from right hip arthroplasty hardware. GASTROINTESTINAL TRACT: The small and large bowel are unremarkable. ABDOMINAL WALL: No significant hernia is appreciated. LYMPH NODES: Normal. VASCULAR: There is atherosclerotic calcification along the aorta. PELVIC VISCERA: Patient is status post hysterectomy. OSSEOUS STRUCTURES: Degenerative changes are noted in the spine. Patient is status post right total hip arthroplasty. IMPRESSION: 1. No acute findings identified in the abdomen/pelvis. 2. Suggestion of a 2.0 cm hypodense lesion in the upper left kidney which could reflect a hyperdense cyst. Further assessment with renal ultrasound is advised to exclude a solid mass. 3. Right pelvic kidney. 4. Hepatomegaly.
[2017-11-19 16:33] VITALS: BP 134/88
[2017-11-19] MEDS ORDERED: CIPRO500 M1 PO (16:54)
[2017-11-19] MEDS ORDERED: DIFLUCAN150 M1 PO (16:54)
== END 2017-11-19 17:14 ==
LOC: ERH 13:30
PROVIDERS: Physician Assistant
DX: N93.9 Abnormal uterine and vaginal bleeding, unspecified (principal); N39.0 Urinary tract infection, site not specified; D64.9 Anemia, unspecified; N28.1 Cyst of kidney, acquired
CPT/HCPCS: 74176; 81001; 87086